=== PATIENT | female | born 1975 | race American Indian/Alaskan Native ===

== ENCOUNTER 2018-04-15 10:54 | Outpatient (CLI) | payer OTHER | END 2018-04-15 11:09 | disposition home or self-care (01) | LOC: MAMO-SONO 10:54 | DX: Z12.31 Encounter for screening mammogram for malignant neoplasm of breast (principal); N64.4 Mastodynia; N60.11 Diffuse cystic mastopathy of right breast; N84.0 Polyp of corpus uteri ==